=== PATIENT | female | born 1995 | race Caucasian/White ===

== ENCOUNTER 2016-09-28 23:09 | Emergency (ER) | payer OTHER ==
--- NOTE | 2016-09-29 00:13 | ED Physician Documentation ---
General Adult - HISTORIAN Historian: patient - HPI Stated Complaint: constipation Chief Complaint: General Adult Additional Information: No bowel movement for 5 days. Took mag citrate but threw up. - ROS CONST: no problems - PAST HX Past History: none Surgeries/Procedures: none Allergies/Adverse Reactions: Allergies Allergy/AdvReac Type Severity Reaction Status Date / Time Penicillins AdvReac Anaphylaxis Verified 09/28/16 23:20 Sulfa (Sulfonamide AdvReac Anaphylaxis Verified 09/28/16 23:20 Antibiotics) [Sulfa(Sulfonamide Antibiotics)] Home Medications: Ambulatory Orders Medication Instructions Recorded Albuterol Sulfate [Ventolin HFA 1 puff INH PRN PRN 03/29/15 Inhaler] Docusate Sodium [Colace] 100 mg PO DAILY #30 capsule 09/29/16 Nitrofurantoin Monohyd/M-Cryst 100 mg PO Q12H #14 capsule 09/29/16 [Macrobid] - SOCIAL HX Smoking History: cigarettes (4-5 cig's/day since 6 y/o) - FAMILY HX Family History: No (no signif) - VITAL SIGNS Vital Signs: Vital Signs Temp Pulse Resp BP Pulse Ox 98.8 F 105 H 20 112/71 99 09/28/16 23:10 09/28/16 23:10 09/28/16 23:10 09/28/16 23:10 09/28/16 23:10 - REVIEWED ASSESSMENTS Nursing Assessment Reviewed: Yes Vitals Reviewed: Yes Progress - Progress Progress: Obstructive series with chest x-ray Clinical history: Constipation for 6 days. Periumbilical pain. Findings: Examination of the chest in single PA view demonstrates the lungs to be clear. Cardiovascular and mediastinal silhouettes are normal. Examination of the abdomen in supine and upright views demonstrates gas and stool in the colon. There is no obstruction or free air. Properitoneal fat lines are preserved. The visualized visceral silhouettes are within normal limits. There is mild levoscoliosis of the lumbar vertebrae that may be related to patient positioning or muscle spasm. Impression: 1. Mild levoscoliosis. 2. Otherwise negative study. Electronically signed on Sep 29, 2016 12:10:07 AM CDT by: Chaka Garner Given docusate, fleets enema and milk of magnesia in ER. Had BM. ED Results Lab/Radiology - Orders Orders: ED Orders Category Date Time Status Enema [Administer Enema] 1T Care 09/29/16 00:10 Ordered ABD SERIES PA CHEST [RAD] Stat Exams 09/28/16 Taken URINALYSIS Routine Lab 09/28/16 Ordered URINE HCG Stat Lab 09/28/16 23:37 Ordered Docusate Sodium [Colace] Med 09/29/16 00:09 Once 200 mg PO NOW ONE Magnesium Hydroxide [Milk of Magnesia] Med 09/29/16 00:09 Once 2,400 mg PO NOW ONE General Adult Physical Exam - PHYSICAL EXAM GENERAL APPEARANCE: mild distress (anxious) EENT: eye inspection normal, ENT inspection normal, pharynx normal NECK: normal inspection, supple RESPIRATORY: no resp distress, breath sounds normal CVS: reg rate & rhythm, heart sounds normal, no murmur ABDOMEN: soft, normal bowel sounds, no distension, non-tender RECTAL: deferred BACK: normal inspection, no CVA tenderness SKIN: warm/dry, normal color EXTREMITIES: no evidence of injury NEURO: CN's nml as tested, motor nml, sensation nml Discharge Clincal Impression: Constipation Qualifiers: Constipation type: unspecified constipation type Qualified Code(s): K59.00 - Constipation, unspecified Urinary tract infection Qualifiers: Urinary tract infection type: acute cystitis Hematuria presence: with hematuria Qualified Code(s): N30.01 - Acute cystitis with hematuria Prescriptions: Docusate Sodium [Colace] 100 mg PO DAILY #30 capsule Nitrofurantoin Monohyd/M-Cryst [Macrobid] 100 mg PO Q12H #14 capsule Referrals: Asher Vasquez MD [Primary Care Provider] - 2 Days Home Medications: Ambulatory Orders Albuterol Sulfate [Ventolin HFA Inhaler] 1 puff INH PRN PRN 03/29/15 Docusate Sodium [Colace] 100 mg PO DAILY #30 capsule 09/29/16 Nitrofurantoin Monohyd/M-Cryst [Macrobid] 100 mg PO Q12H #14 capsule 09/29/16 Condition: Good Disposition: 01 HOME, SELF-CARE Decision to Admit: NO Decision Time: 00:47
[2016-09-29] MEDS: MAGNESIUM HYDROXIDE 400 MG/5 ML 30ML UDC PO ONE (00:27)
[2016-09-29] MEDS: DOCUSATE SODIUM 100 MG CAPSULE PO ONE (00:27)
[2016-09-29] MEDS: NITROFURANTOIN 100 MG CAPSULE PO ONE (00:42)
[2016-09-29 00:50] VITALS: BP 114/70
--- NOTE | 2016-09-29 06:16 | Diagnostic Imaging Report ---
Report Submission Date: Sep 29, 2016 12:10:07 AM CDT Patient ~ Study Name: VOLODYMYR FINLEY ~ Date: Sep 28, 2016 11:56:02 PM CDT ~ Modality Type: CR Gender: F ~ Description: ABDOMEN : 89 ~ Institution: [facility] Physician: CYNTHIA HARDY ~ ~ ~ ~ Obstructive series with chest x-ray Clinical history: ~Constipation for 6 days. ~Periumbilical pain. Findings: ~Examination of the chest in single PA view demonstrates the lungs to be clear. ~Cardiovascular and mediastinal silhouettes are normal. Examination of the abdomen in supine and upright views demonstrates gas and stool in the colon. ~There is no obstruction or free air. ~Properitoneal fat lines are preserved. ~The visualized visceral silhouettes are within normal limits. ~There is mild levoscoliosis of the lumbar vertebrae that may be related to patient positioning or muscle spasm. Impression: 1. ~Mild levoscoliosis. 2. ~Otherwise negative study. ~ Electronically signed on Sep 29, 2016 12:10:07 AM CDT by: Chaka SUÁREZ
[2016-09-29 06:26] LABS: APPEARANCE,URINE CLOUDY (CLEAR); COLOR,URINE YELLOW (YELLOW); OCCULT BLOOD,URINE 3+ (NEGATIVE); PH URINE 5.5 (5.0 - 8.0); UROBILINOGEN URINE 0.2 Eu (0.2-1.0)
== END 2016-09-29 00:44 | disposition home or self-care (01) ==
LOC: ED 23:09
DX: K59.00 Constipation, unspecified (principal); N30.01 Acute cystitis with hematuria
CPT/HCPCS: 74022; 81002; 81025; 87086; 99283

== ENCOUNTER 2016-11-25 14:09 | Outpatient (CLI) | payer OTHER | END 2016-11-25 14:10 | LOC: LABRHC 14:09 | PROVIDERS: ATTEND Physician Assistant | DX: Z11.3 Encounter for screening for infections with a predominantly sexual mode of transmission (principal) | CPT/HCPCS: 87491; 87591; 87798 ==

== ENCOUNTER 2016-12-17 13:39 | Outpatient (CLI) | payer OTHER ==
[2016-12-17 13:53] LABS: BASOPHILS % 0.7 (0.0-1.5); EOSINOPHILS % 2.1 % (0.0-6.8); MEAN CORPUSCULAR HEMOGLOBIN 27.9 pg (28.0-34.0); MEAN CORPUSCULAR VOLUME 88.4 fl (80.0-100.0); MONOCYTES % 4.7 % (0.0-11.0); NEUTROPHILS # 3.1 # k/uL (1.4-7.7)
[2016-12-17 14:24] LABS: eGFR (African) > 60; eGFR (Non-African) > 60
== END 2016-12-17 13:40 ==
LOC: LAB 13:39
PROVIDERS: ATTEND Physician Assistant
DX: R53.83 Other fatigue (principal); N92.6 Irregular menstruation, unspecified
CPT/HCPCS: 36415; 80053; 84443; 84703; 85025

== ENCOUNTER 2017-02-25 15:04 | Emergency (ER) | payer OTHER ==
[2017-02-25 15:21] VITALS: BP 112/64
[2017-02-25] MEDS ORDERED: KETOROLAC TROMETHAMINE 60 MG/2 ML VIAL IM ONE (15:38)
--- NOTE | 2017-02-25 15:45 | ED Physician Documentation ---
Sore Throat/Dental Pain - HISTORIAN Historian: patient - HPI Stated Complaint: left low jaw pain Chief Complaint: Dental Pain Onset: other (yesterday) Context: Dental Caries Associated Symptoms: severe (pains) Further Comments: yes (21 year old female patient presents with left lower jaw pain and edema from dental caries.) - ROS CONST: no problems CVS/RESP: none GI/: denies: nausea, vomiting NEURO/PSYCH: none - PAST HX Past History: gum disease Allergies/Adverse Reactions: Allergies Allergy/AdvReac Type Severity Reaction Status Date / Time Penicillins AdvReac Anaphylaxis Verified 02/25/17 15:22 Sulfa (Sulfonamide AdvReac Anaphylaxis Verified 02/25/17 15:22 Antibiotics) [Sulfa(Sulfonamide Antibiotics)] Home Medications: Ambulatory Orders Medication Instructions Recorded Cephalexin [Keflex] 500 mg PO QID #40 capsule 02/25/17 - SOCIAL HX Smoking History: cigarettes - FAMILY HX Family History: No - VITAL SIGNS Vital Signs: Vital Signs Temp Pulse Resp BP Pulse Ox 99.5 F 76 20 112/64 99 02/25/17 15:04 02/25/17 15:04 02/25/17 15:04 02/25/17 15:04 02/25/17 15:04 - REVIEWED ASSESSMENTS Nursing Assessment Reviewed: Yes Vitals Reviewed: Yes Progress - Progress Progress: Patient states she does not have any money for antibiotics, Mother reports anaphylactic reaction to PCN. Patient does not want PCN, allergy to Sulfa. Cannot afford clindamycin at $30 with coupon. Will prescribe keflex from $4 list. Numbers for [facility] provided. Toradol given in Er. ED Results Lab/Radiology - Orders Orders: ED Orders Category Date Time Status Ketorolac Tromethamine [Toradol] Med 02/25/17 15:38 Once 60 mg IM NOW ONE Dental Pain Physical Exam - EXAM General Appearance: moderate distress Mouth/Throat: pharynx nml, voice nml, no drooling, no air way problems, no thrush, membranes nml, gum swelling around teeth (left bottom molars), widespread dental decay, other (#36 with decay to gumline) Respiratory: no resp. distress CVS: reg. rate & rhythm Skin: normal color, warm/dry, NR, INT, PAL, DR Neuro/Psych: No: weakness Discharge Clincal Impression: Dental abscess, Dental caries Prescriptions: Cephalexin [Keflex] 500 mg PO QID #40 capsule Referrals: Rukhsana Moscoso PA [Primary Care Provider] - 2 Days Home Medications: Ambulatory Orders Cephalexin [Keflex] 500 mg PO QID #40 capsule 02/25/17 Condition: Stable Disposition: 01 HOME, SELF-CARE Decision to Admit: NO Decision Time: 15:48
== END 2017-02-25 15:50 | disposition home or self-care (01) ==
LOC: ED 15:04
DX: K04.7 Periapical abscess without sinus (principal); K02.9 Dental caries, unspecified
CPT/HCPCS: 96372; 99283; J1885

== ENCOUNTER 2017-09-07 22:47 | Emergency (ER) | payer OTHER ==
--- NOTE | 2017-09-07 23:02 | ED Physician Documentation ---
General Adult - HISTORIAN Historian: patient - HPI Stated Complaint: vomiting blood Chief Complaint: General Adult Onset: hours (1) Timing: better Severity: mild Further Comments: yes (She reports three episodes of vomiting from reflux this pm. She notes the last vomit was with a small amount of what she feels could have been blood with undigested food. She started zantac a few weeks ago. She has no pain. No other bleeding concerns. No abdominal pain. Baby is moving normally) Last known Well Code/Unknown Code: Unknown - ROS CONST: no problems EYES/ENT: none CVS/RESP: none GI/: vomiting. denies: abdominal pain, problems urinating, nausea MS/SKIN/LYMPH: none NEURO/PSYCH: denies: headache, fainting, dizziness - PAST HX Past History: none Immunizations: UTD Allergies/Adverse Reactions: Allergies Allergy/AdvReac Type Severity Reaction Status Date / Time Penicillins Allergy Anaphylaxis Verified 09/07/17 23:06 Sulfa (Sulfonamide Allergy Anaphylaxis Verified 09/07/17 23:06 Antibiotics) [Sulfa(Sulfonamide Antibiotics)] sulfamethoxazole Allergy Anaphylaxis Verified 09/07/17 23:06 [From Bactrim] trimethoprim [From Bactrim] Allergy Anaphylaxis Verified 09/07/17 23:06 Home Medications: Ambulatory Orders Medication Instructions Recorded Ranitidine HCl [Zantac] 75 mg PO BID 09/07/17 - SOCIAL HX Smoking History: non-smoker Alcohol Use: none Drug Use: none - FAMILY HX Family History: No - VITAL SIGNS Vital Signs: Vital Signs Temp Pulse Resp BP Pulse Ox 112/64 02/25/17 15:04 - REVIEWED ASSESSMENTS Nursing Assessment Reviewed: Yes Vitals Reviewed: Yes General Adult Physical Exam - PHYSICAL EXAM GENERAL APPEARANCE: no distress EENT: pharynx normal NECK: normal inspection RESPIRATORY: no resp distress, chest non-tender, breath sounds normal CVS: reg rate & rhythm, heart sounds normal ABDOMEN: soft, normal bowel sounds, no distension, non-tender SKIN: warm/dry EXTREMITIES: non-tender, normal range of motion, no evidence of injury, no edema NEURO: oriented X3, CN's nml as tested, motor nml, sensation nml, mood/affect nml Discharge Clincal Impression: Reflux esophagitis Referrals: Rukhsana Moscoso PA [Primary Care Provider] - 2 Days Comments: 1. continue reflux meds 2. Elevate head to sleep 3. increase fluids 4. Call OBGYN IN AM and follow up 5. Return to ER for increased symptoms Condition: Stable Disposition: 01 HOME, SELF-CARE Decision to Admit: NO Date of Decison to Admit: 09/07/17 Decision Time: 23:10
[2017-09-07 23:07] VITALS: BP 125/73
== END 2017-09-07 23:13 | disposition home or self-care (01) ==
LOC: ED 22:47
DX: K21.9 Gastro-esophageal reflux disease without esophagitis (principal)
CPT/HCPCS: 99282

== ENCOUNTER 2019-04-09 17:48 | Emergency (ER) | payer OTHER | END 2019-04-09 18:28 | disposition home or self-care (01) | LOC: ED 17:48 | DX: Z01.42 Encounter for cervical smear to confirm findings of recent normal smear following initial abnormal smear (principal); N85.8 Other specified noninflammatory disorders of uterus; R07.89 Other chest pain; R51 Headache | CPT/HCPCS: 99281; 99282 ==

== ENCOUNTER 2019-07-14 18:47 | Emergency (ER) | payer OTHER ==
--- NOTE | 2019-07-14 19:02 | ED Physician Documentation ---
General Adult - HISTORIAN Historian: patient - HPI Stated Complaint: fever, nausea and cough x 10 hours Chief Complaint: Fever Onset: hours (10) Timing: still present Severity: mild Further Comments: yes (She states at 1 am or so she started to have chills - fever at home. Cough that is productive. She has aches. Nausea no vomiting. She has not taken any OTC Meds . No rash) - ROS CONST: fever EYES/ENT: denies: sore throat, nasal drainage, nasal congestion CVS/RESP: cough. denies: shortness of breath GI/: none MS/SKIN/LYMPH: none - PAST HX Past History: none Allergies/Adverse Reactions: Allergies Allergy/AdvReac Type Severity Reaction Status Date / Time amoxicillin Allergy Verified 07/14/19 19:17 Penicillins Allergy Anaphylaxis Verified 09/07/17 23:06 quetiapine [From Seroquel] Allergy Verified 07/14/19 19:17 Sulfa (Sulfonamide Allergy Anaphylaxis Verified 09/07/17 23:06 Antibiotics) [Sulfa(Sulfonamide Antibiotics)] sulfamethoxazole Allergy Anaphylaxis Verified 09/07/17 23:06 [From Bactrim] trimethoprim [From Bactrim] Allergy Anaphylaxis Verified 09/07/17 23:06 Home Medications: Ambulatory Orders Medication Instructions Recorded NK 07/14/19 - SOCIAL HX Smoking History: non-smoker Alcohol Use: none Drug Use: none - FAMILY HX Family History: No - VITAL SIGNS Vital Signs: Vital Signs Temp Pulse Resp BP Pulse Ox 125/73 09/07/17 23:13 - REVIEWED ASSESSMENTS Nursing Assessment Reviewed: Yes Vitals Reviewed: Yes General Adult Physical Exam - PHYSICAL EXAM GENERAL APPEARANCE: no distress EENT: eye inspection normal, ENT inspection normal, pharynx normal, no signs of dehydration, TM's nml NECK: normal inspection RESPIRATORY: no resp distress, chest non-tender, breath sounds normal CVS: reg rate & rhythm, heart sounds normal ABDOMEN: soft, no distension SKIN: warm/dry EXTREMITIES: non-tender NEURO: oriented X3 Discharge Clincal Impression: Influenza B Referrals: Josie You MD [Primary Care Provider] - 2 Days Comments: 1. OTC meds as directed as needed for symptom management 2. Tamiflu 75 mg take 1 by mouth twice daily x 5 days 3. Increase fluids 4. Rest 5. Discussion on secondary issues post flu 6. Return to ER for any increased concerns Condition: Stable Disposition: 01 HOME, SELF-CARE Decision to Admit: NO Date of Decison to Admit: 07/14/19 Decision Time: 19:30
[2019-07-14 19:16] VITALS: BP 120/67
== END 2019-07-14 19:30 | disposition home or self-care (01) ==
LOC: ED 18:47
DX: J10.1 Influenza due to other identified influenza virus with other respiratory manifestations (principal)
CPT/HCPCS: 87400; 99282; 99284